=== PATIENT | male | born 1980 | race Caucasian/White ===

== ENCOUNTER 2022-08-18 09:54 | Emergency (ER) | payer OTHER ==
[~2022-08-18] VITALS: Ht 182.9 cm; Wt 90.7 kg
[~2022-08-18 09:54] MED LIST: ALPR0.25 PO; METH10TA2 PO
[2022-08-18 10:07] VITALS: BP 169/89
--- NOTE | 2022-08-18 10:40 | NUR ---
Swab obtained and sent to Lab
--- NOTE | 2022-08-18 11:20 | NUR ---
Medically Cleared for Booking. Patient discharged to [facility] custody stable condition. Written and verbal after care instructions given. Patient verbalizes understanding of instruction.
== END 2022-08-18 11:21 ==
LOC: ER 09:54
DX: Z02.89 Encounter for other administrative examinations (principal); Z20.822 Contact with and (suspected) exposure to COVID-19; Z86.59 Personal history of other mental and behavioral disorders
CPT/HCPCS: 99283; 87426; C9803